=== PATIENT | male | born 1985 | race Two or more races ===

== ENCOUNTER 2021-05-23 15:37 | Emergency (ER) | payer MEDICAID, OTHER ==
[~2021-05-23] VITALS: Ht 182.9 cm; Wt 93.0 kg
[2021-05-23 16:41] VITALS: BP 132/96
== END 2021-05-23 18:42 | disposition home or self-care (01) ==
LOC: ER 15:37
DX: S52.121A Displaced fracture of head of right radius, initial encounter for closed fracture (principal); S63.501A Unspecified sprain of right wrist, initial encounter; F12.10 Cannabis abuse, uncomplicated; W01.0XXA Fall on same level from slipping, tripping and stumbling without subsequent striking against object, initial encounter; Y93.89 Activity, other specified; Y92.89 Other specified places as the place of occurrence of the external cause; Y99.8 Other external cause status
CPT/HCPCS: 29105; 73080; 73110